=== PATIENT | male | born 1980 | race African-American/Black ===

== ENCOUNTER 2018-03-02 17:26 | Emergency (ER) | payer SELFPAY ==
[2018-03-02 17:37] VITALS: BMI 42.0
--- NOTE | 2018-03-02 17:57 | PDOC ---
History of Present Illness - General Chief Complaint: Blood Pressure Problem Stated Complaint: BLOOD PRESSURE PROBLEM Time Seen by Provider: 03/02/18 17:53 - History of Present Illness Initial Comments: 03/02/18 17:56 38 yo M with h/o uncontrolled HTN, who p/w headache. Patient reports unremitting , worsening, pressure, bi frontal headache beginning at 0500 AM this morning, worsening in severity. Pain not relieved with OTC Motrin. Pain typical of prior BATES's in past, but worse in severity. Patient states worst headache of his life. Associated with nausea without vomiting. Endorsed period of lightheadedness, with absent LOC, head trauma, in waiting room. Denies phonophobic, photophobia, neck stiffness, rhinorrhea, lacrimation, scintillating scotomas, visual change, tinnitus, hearing loss. Patient ran out of HCTZ x 3 months. Switching insurance providers. No PMD. Patient denies palpitations, orthopnea, PND, leg pain/swelling, cough, wheezing , F/C, CP, SOB, urinary complaints, abdominal pain, diarrhea, constipation, weakness, sensory changes. PMHx: as noted above ROS: as noted SHx: Denies Etoh, tobacco, IVDA Allergies:NKDA Past History - Past Medical History Allergies/Adverse Reactions: Allergies Allergy/AdvReac Type Severity Reaction Status Date / Time shellfish derived Allergy Severe Swelling Verified 03/02/18 19:12 Home Medications: Ambulatory Orders No Home Medications 0 dose .ROUTE UTDICT 04/18/13 Hydrochlorothiazide 12.5 mg PO DAILY #30 tablet MDD 1 tab 03/02/18 Valsartan [Diovan] 40 mg PO DAILY #30 tablet 03/02/18 Anemia: No Asthma: No Cancer: No COPD: No HTN: Yes (NOT TREATED) - Surgical History Abdominal Surgery: No Appendectomy: No Cardiac Surgery: No - Family Disease History Family Disease History: Other: Grandparents (hypertension) - Suicide/Smoking/Psychosocial Hx Smoking Status: No Smoking History: Never smoked Number of Cigarettes Smoked Daily: 0 Hx Alcohol Use: No Drug/Substance Use Hx: No Substance Use Type: None Review of Systems - Review of Systems Comments:: 03/02/18 17:56 GENERAL/CONSTITUTIONAL: No fever or chills. No weakness. HEAD, EYES, EARS, NOSE AND THROAT: No change in vision. No ear pain or discharge. No sore throat. CARDIOVASCULAR: No chest pain or shortness of breath RESPIRATORY: No cough, wheezing, or hemoptysis. GASTROINTESTINAL: + nausea. No vomiting, diarrhea or constipation. GENITOURINARY: No dysuria, frequency, or change in urination. MUSCULOSKELETAL: No joint or muscle swelling or pain. No neck or back pain. SKIN: No rash NEUROLOGIC:+ headache. No vertigo, loss of consciousness, or change in strength/ sensation. ENDOCRINE: No increased thirst. No abnormal weight change HEMATOLOGIC/LYMPHATIC: No anemia, easy bleeding, or history of blood clots. ALLERGIC/IMMUNOLOGIC: No hives or skin allergy. *Physical Exam - Vital Signs Last Vital Signs Temp Pulse Resp BP Pulse Ox 97.5 F L 89 18 210/130 H 100 03/02/18 17:32 18 17:32 1218 17:32 18 17:32 03/02/18 17:32 - Physical Exam Comments: 03/02/18 17:56 GENERAL: Awake, alert, and fully oriented, in no acute distress HEAD: No signs of trauma, normocephalic, atraumatic EYES: PERRLA, EOMI, sclera anicteric, conjunctiva clear ENT: Auricles normal inspection, hearing grossly normal, nares patent, oropharynx clear without exudates. Moist mucosa NECK: Normal ROM, supple, no lymphadenopathy, JVD, or masses LUNGS: No distress, speaks full sentences, clear to auscultation bilaterally HEART: Regular rate and rhythm, normal S1 and S2, no murmurs, rubs or gallops, peripheral pulses normal and equal bilaterally. EXTREMITIES : Normal inspection, Normal range of motion, no edema. No clubbing or cyanosis. NEUROLOGICAL: Cranial nerves II through XII grossly intact. Normal speech, normal gait, no focal sensorimotor deficits SKIN: Warm, Dry, normal turgor, no rashes or lesions noted Moderate Sedation - Procedure Monitoring Vital Signs: Procedure Monitoring Vital Signs Temperature 97.5 F L 03/02/18 17:32 Pulse Rate 89 03/02/18 17:32 Respiratory Rate 18 03/02/18 17:32 Blood Pressure 210/130 H 03/02/18 17:32 O2 Sat by Pulse Oximetry (%) 100 03/02/18 17:32 ED Treatment Course - LABORATORY CBC & Chemistry Diagram: 12/02/18 18:37 03/02/18 18:37 Medical Decision Making - Medical Decision Making 03/02/18 18:35 38 yo M with h/o uncontrolled HTN, morbid obesity, who p/w headache. BP 210/130, vitals otherwise wnl. R/o SAH. No obvious evidence of end organ dysfunction on physical exam. Absent neuro deficits, edema, cough, chest pain, hematuria. Absent nuchal rigidity or neck stiffness, non toxic, AF. Low suspicion meningitis. No evidence of head trauma. ED Course: CBC,CMP CTH Reglan, NS, HCTZ 25 03/02/18 18:54 EKG: NSR with Q wave in lead III. No acute TAYLOR, STD. Prolonged QTc 495. EKG, similar to prior EKG 03/2012. 03/02/18 22:43 CBC,CMP: Unremarkable UA: Neg BP: 167/112( baseline) CTH: No acute pathology HCTZ 12.5 sent to pharmacy Pt. BATES resolved. Stable for d/c with return precautions. Advised to f/u in Med clinic. *DC/Admit/Observation/Transfer Diagnosis at time of Disposition: Headache, Essential hypertension - Discharge Dispostion Disposition: HOME Condition at time of disposition: Stable Decision to Admit order: No - Prescriptions Prescriptions: Hydrochlorothiazide 12.5 mg PO DAILY #30 tablet MDD 1 tab Valsartan [Diovan] 40 mg PO DAILY #30 tablet - Referrals Referrals: James Carcamo MD [Staff Physician] - - Patient Instructions Printed Discharge Instructions: DI for High Blood Pressure Additional Instructions: Please return to the emergency department with any new or worsening symptoms or concerns. Please follow up with your primary care physician within 72 hours. - Post Discharge Activity - Attestations Physician Attestion: 03/02/18 17:56 I attest to the information provided in this note.
[2018-03-02] MEDS ORDERED: KETOROLAC TROMETHAMINE 30 MG/1 ML VIAL ONE (18:26)
[2018-03-02] MEDS ORDERED: METOCLOPRAMIDE HCL INJECTION 10 MG/2 ML VIAL ONE (18:26)
[2018-03-02] MEDS ORDERED: METOCLOPRAMIDE HCL INJECTION 10 MG/2 ML VIAL IVPUSH ONE (18:27)
[2018-03-02] MEDS ORDERED: SODIUM CHLORIDE 1,000 ML IV STA (18:27)
[2018-03-02] MEDS ORDERED: HYDROCHLOROTHIAZIDE 25 MG TABLET (FP) PO ONE (18:40)
--- NOTE | 2018-03-02 18:42 | PDOC ---
Attending Attestation - HPI HPI: 03/02/18 18:44 The patient is a 38 year old male, with a significant past medical history of uncontrolled hypertension, who presents to the emergency department with progressive bifrontal headache since 5AM this morning despite taking Aleve throughout the day. He states his headaches are usually alleviated with Aleve, however, took 3 Aleve this morning and an additional 2 later in the day without any relief of his headache. He states his headache is similar to a headache he had one year ago which was associated with high blood pressure. He states he has been off of his BP medication for about 3 months because he switched jobs and lost insurance. The patient denies chest pain, shortness of breath, headache and dizziness. The patient denies fever, chills, nausea, vomit, diarrhea and constipation. The patient denies dysuria, frequency, urgency and hematuria. Allergies: NKDA Social Hx: Denies ETOH or tobacco use Family Hx: Hypertension and Renal Failure) - Medical Decision Making 03/02/18 18:44 Documentation prepared by Perla Mart, acting as medical practice administrator for Fartun Long MD <Perla Mart - Last Filed: 03/02/18 18:44> - ED Attending Attestation I have performed the following: I have examined & evaluated the patient, The case was reviewed & discussed with the resident, I agree w/resident's findings & plan, Exceptions are as noted - Physicial Exam PE: 03/02/18 18:40 Awake alert no acute distress lungs are clear bilaterally heart is regular without any murmurs rubs or gallops abdomen is soft nontender obese exam is are warm and well-perfused neurologically the patient is alert and oriented 3 moving all 4 extremities speech is clear skin is warm and dry - Medical Decision Making 03/02/18 18:42 38-year-old obese male history of hypertension off his meds for 3 months here complaining of a headache and elevated blood pressure. Similar to prior headaches when pressure was elevated. Differential includes hypertensive emergency, anemia, renal failure, and organ damage, ICH considered CT head basic labs EKG patient will be reinstituted on his previous hydrochlorothiazide given prescription for the medications will reassess will be given Tylenol for his pain <Fartun Long - Last Filed: 03/02/18 18:54> Heart Score/ECG Review #1 General ECG Interpretation: Sinus Rhythm, Normal Rate, Normal Intervals ( physical Q w), No acute ischemic changes Compared to previous ECG there are: No significant change (comparison 3 over03/15 with that. As visible a V/Q R so bit nonbloody an) <Fartun Long - Last Filed: 03/02/18 18:54>
[2018-03-02 18:44] LABS: BASO % 0.5 % (0-2.0); EOS % 0.9 % (0-4.5); HEMATOCRIT 41.8 % (35.4-49); HEMOGLOBIN 14.6 GM/dL (11.7-16.9); MCH 30.5 pg (25.7-33.7); MCHC 34.9 g/dl (32.0-35.9); MEAN CELL VOLUME 87.2 fl (80-96); MEAN PLT VOLUME 9.3 fl (7.5-11.1); MONO % 6.5 % (3.8-10.2); NEUT % 74.1 % (42.8-82.8); PLATELET COUNT 254 K/MM3 (134-434); RBC 4.79 M/mm3 (4.00-5.60); RDW 14.3 % (11.9-15.9); WHITE BLOOD COUNT 8.9 K/mm3 (4.0-10.0)
[2018-03-02 18:45] LABS: URINE APPEARANCE CLEAR; URINE BILIRUBIN NEGATIVE (<2.0 mg/dL); URINE COLOR YELLOW; URINE GLUCOSE (UA) NEGATIVE (NEGATIVE); URINE KETONE NEGATIVE (NEGATIVE); URINE LEUK ESTERASE NEGATIVE (NEGATIVE); URINE NITRITE NEGATIVE (NEGATIVE); URINE PROTEIN NEGATIVE (NEGATIVE); URINE UROBILINOGEN NEGATIVE mg/dL (0.2-1.0)
[2018-03-02] MEDS ORDERED: HYDROCHLOROTHIAZIDE 25 MG TABLET (FP) ONE (18:51)
[2018-03-02 19:09] LABS: ALBUMIN 4.6 g/dl (3.4-5.0); ALK PHOS 85 U/L (45-117); ANION GAP 9 MMOL/L (8-16); BILIRUBIN,TOTAL 0.4 mg/dL (0.2-1); BLOOD UREA NITROGEN 13 mg/dL (7-18); CALCIUM 9.3 mg/dL (8.5-10.1); CHLORIDE 100 mmol/L (98-107); CO2 28 mmol/L (21-32); GLUCOSE,RANDOM 106 mg/dL (74-106); POTASSIUM 4.1 mmol/L (3.5-5.1); SGOT/AST 22 U/L (15-37); SGPT/ALT 38 U/L (13-61); SODIUM 137 mmol/L (136-145); TOT PROT 8.7 g/dl (6.4-8.2)
[2018-03-02 21:21] VITALS: BP 167/112; PULSE 83; TEMP 98.8
[2018-03-02] MEDS ORDERED: VALSARTAN 80 MG TABLET (UD) PO ONE (22:27)
[2018-03-02] MEDS ORDERED: ACETAMINOPHEN 500 MG TABLET (FP) PO ONE (22:28)
[2018-03-02] MEDS ORDERED: ACETAMINOPHEN INJECTION 100 ML IVPB ONE (22:30)
[2018-03-02] MEDS ORDERED: VALSARTAN 80 MG TABLET (UD) ONE (22:30)
[2018-03-02] MEDS ORDERED: ACETAMINOPHEN 325 MG TABLET (FP) ONE (22:33)
--- NOTE | 2018-03-02 23:00 | PDOC ---
*Physical Exam - Vital Signs Last Vital Signs Temp Pulse Resp BP Pulse Ox 98.8 F 83 16 167/112 H 100 03/02/18 21:15 03/02/18 21:15 03/02/18 21:15 03/02/18 21:15 03/02/18 21:15 ED Treatment Course - LABORATORY CBC & Chemistry Diagram: 03/02/18 18:37 03/02/18 18:37 - ADDITIONAL ORDERS Additional order review: Laboratory Results 03/02/18 03/02/18 18:37 18:37 Sodium 137 Potassium 4.1 Chloride 100 Carbon Dioxide 28 Anion Gap 9 BUN 13 Creatinine 1.0 Creat Clearance w eGFR > 60 Random Glucose 106 Calcium 9.3 Total Bilirubin 0.4 AST 22 ALT 38 Alkaline Phosphatase 85 Total Protein 8.7 H Albumin 4.6 Urine Color Yellow Urine Appearance Clear Urine pH 6.0 Ur Specific [place] 1.021 Urine Protein Negative Urine Glucose (UA) Negative Urine Ketones Negative Urine Blood Negative Urine Nitrite Negative Urine Bilirubin Negative Urine Urobilinogen Negative Ur Leukocyte Esterase Negative 03/02/18 18:37 RBC 4.79 MCV 87.2 MCHC 34.9 RDW 14.3 MPV 9.3 Neutrophils % 74.1 D Lymphocytes % 18.0 D Monocytes % 6.5 Eosinophils % 0.9 Basophils % 0.5 - Medications Given in the ED: ED Medications Discontinued Medications Generic Name Dose Route Start Last Admin Trade Name Onofreq PRN Reason Stop Dose Admin Acetaminophen 1,000 mg 03/02/18 22:28 03/02/18 22:40 Tylenol - PO 03/02/18 22:29 Not Given ONCE ONE Hydrochlorothiazide 25 mg 03/02/18 18:40 03/02/18 18:50 Hctz - PO 03/02/18 18:41 25 mg ONCE ONE Administration Sodium Chloride 1,000 mls @ 1,000 mls/hr 03/02/18 18:27 03/02/18 18:38 Normal Saline - IV 03/02/18 19:26 1,000 mls/hr ASDIR STA Administration Metoclopramide HCl 10 mg 03/02/18 18:27 03/02/18 18:38 Reglan Injection - IVPUSH 03/02/18 18:28 10 mg ONCE ONE Administration Valsartan 80 mg 03/02/18 22:27 03/02/18 22:38 Diovan - PO 03/02/18 22:28 80 mg ONCE ONE Administration Medical Decision Making - Medical Decision Making 03/02/18 22:58 03/02/18 22:58 Patient Name: MIKE JORGE THIS IS A PRELIMINARY REPORT FROM [facility] EXAM: CT head without contrast IMAGES: 150 DATE OF EXAM: 2018-03-02 21:37:13 REASON FOR EXAM: Headaches COMPARISON: None. FINDINGS: The brain parenchyma demonstrates normal attenuation without focal mass or mass effect. The ventricles are not enlarged. No acute intracranial hemorrhage or acute infarction. The visualized aspect of the paranasal sinuses and mastoid air cells are unremarkable. Moderate debris in external auditory canals. No acute fracture. One or more of the following dose reduction techniques were used: automated exposure control, adjustment of the mA and/or kV according to patient size, use of iterative reconstructive technique. THIS DOCUMENT HAS BEEN ELECTRONICALLY SIGNED 03/02/18 22:58 I received pt on signout. He has uncontrolled BP. Today we will control with diovan. Pt's HCTZ has not been controlling it and on top of that he ran out of HCTZ. Diovan given in ER and 30 day rx sent to pharmacy. Pt will follow with his doctors. He needs to lose weight. Labs and exam and CT scan normal. *DC/Admit/Observation/Transfer Diagnosis at time of Disposition: Headache, Essential hypertension - Discharge Dispostion Disposition: HOME Condition at time of disposition: Stable - Prescriptions Prescriptions: Hydrochlorothiazide 12.5 mg PO DAILY #30 tablet MDD 1 tab Valsartan [Diovan] 40 mg PO DAILY #30 tablet - Referrals Referrals: James Carcamo MD [Staff Physician] - - Patient Instructions Printed Discharge Instructions: DI for High Blood Pressure Additional Instructions: Please return to the emergency department with any new or worsening symptoms or concerns. Please follow up with your primary care physician within 72 hours. - Post Discharge Activity
[2018-03-02] MEDS ORDERED: ACETAMINOPHEN 325 MG TABLET (FP) PO ONE (23:11)
--- NOTE | 2018-03-03 11:15 | EKG ---
Test Reason : Blood Pressure : / mmHG Vent. Rate : 098 BPM Atrial Rate : 098 BPM P-R Int : 178 ms QRS Dur : 110 ms QT Int : 388 ms P-R-T Axes : 045 033 060 degrees QTc Int : 495 ms NORMAL SINUS RHYTHM PROLONGED QT ABNORMAL ECG WHEN COMPARED WITH ECG OF 15-MAR-2012 15:20, NO SIGNIFICANT CHANGE WAS FOUND Confirmed by ANNALISA ORDONEZ MD ([id number]) on 03/03/2018 11:14:58 AM Referred By: Confirmed By:ANNALISA ORDONEZ MD
== END 2018-03-02 23:14 | disposition home or self-care (01) ==
LOC: JER 17:26
PROC: 3E033GC Introduction of Other Therapeutic Substance into Peripheral Vein, Percutaneous Approach (ICD-10-PCS; principal; 2018-03-02)
PROC: 3E0337Z Introduction of Electrolytic and Water Balance Substance into Peripheral Vein, Percutaneous Approach (ICD-10-PCS; 2018-03-02)
DX: I10 Essential (primary) hypertension (principal); E66.01 Morbid (severe) obesity due to excess calories
CPT/HCPCS: 36415; 70450-TC; 80053; 81003; 85025; 93005; 93010; 99283-25; J7030

== ENCOUNTER 2018-05-14 09:45 | Observation (INO) | payer OTHER ==
--- NOTE | 2018-05-14 10:37 | PDOC ---
History of Present Illness - History of Present Illness Initial Comments: 05/14/18 12:01 The patient is a 38 year old male, with a significant past medical history of uncontrolled hypertension, who presents to the emergency department with sudden onset of headache at 4AM which did not resolve after taking Aleve. The patient states he felt his blood pressure was high so he also took his hydrochlorothiazide, however, denies improvement of his symptoms. He states he has not been compliant with his HTN medications, but states he has an appointment with his PCP to discuss increasing his BP medications. Secondarily, he reports a couple episodes of loose stools this morning. Upon arrival, he developed nausea, mild upper abdominal pain, and began vomiting green emesis during exam. The patient denies chest pain, shortness of breath, and dizziness. The patient denies fever, chills, and constipation. The patient denies dysuria, frequency, urgency and hematuria. Allergies: NKDA Social Hx: Denies ETOH or tobacco use Family Hx: Hypertension and Renal Failure PCP: Dr. Espinoza ([facility]) <Perla Mart - Last Filed: 05/14/18 14:04> - General History Source: Patient Exam Limitations: No Limitations <Divya Garza - Last Filed: 05/15/18 20:55> - General Chief Complaint: Blood Pressure Problem Stated Complaint: BLOOD PRESSURE PROBLEM Time Seen by Provider: 05/14/18 10:37 Past History <Perla Mart - Last Filed: 05/14/18 14:04> - Past Medical History Anemia: No Asthma: No Cancer: No COPD: No HTN: Yes (NOT TREATED) - Surgical History Abdominal Surgery: No Appendectomy: No Cardiac Surgery: No - Family Disease History Family Disease History: Other: Grandparents (hypertension) - Suicide/Smoking/Psychosocial Hx Smoking Status: No Smoking History: Never smoked Number of Cigarettes Smoked Daily: 0 Information on smoking cessation initiated: No Hx Alcohol Use: No Drug/Substance Use Hx: No Substance Use Type: None <Divya Garza - Last Filed: 05/15/18 20:55> - Past Medical History Allergies/Adverse Reactions: Allergies Allergy/AdvReac Type Severity Reaction Status Date / Time shellfish derived Allergy Severe Swelling Verified 05/14/18 10:00 Home Medications: Ambulatory Orders Hydrochlorothiazide 12.5 mg PO DAILY #30 tablet MDD 1 tab 03/02/18 Review of Systems - Review of Systems Able to Perform ROS?: Yes Comments:: 05/14/18 12:01 CONSTITUTIONAL: Absent: fever, no chills, no fatigue EYES: Absent: visual changes ENT: Absent: ear pain, no sore throat CARDIOVASCULAR: (+) Elevated BP. Absent: chest pain, no palpitations RESPIRATORY: Absent: cough, no SOB GASTROINTESTINAL: (+) upper abdominal pain, nausea, vomiting, diarrhea. No constipation. GENITOURINARY: Absent: dysuria, no frequency, no hematuria MUSCULOSKELETAL: Absent: back pain, no arthralgia, no myalgia SKIN: Absent: rash NEURO: (+) headache <Perla Mart - Last Filed: 05/14/18 14:04> *Physical Exam - Vital Signs Last Vital Signs Temp Pulse Resp BP Pulse Ox 98.2 F 82 20 185/110 H 99 05/14/18 10:33 05/14/18 10:33 05/14/18 10:33 05/14/18 10:33 05/14/18 10:33 - Physical Exam Comments: 05/14/18 12:02 GENERAL: (+) vomiting on exam. The patient is in no acute distress. HEAD: Normal with no signs of trauma. EYES: PERRLA, EOMI, sclera anicteric, conjunctiva clear. ENT: Ears normal, nares patent, oropharynx clear without exudates. Moist mucous membranes. NECK: Normal range of motion, supple without lymphadenopathy, JVD, or masses. LUNGS: Breath sounds equal, clear to auscultation bilaterally. No wheezes, and no crackles. HEART:Regular rate and rhythm, normal S1 and S2 without murmur, rub or gallop. ABDOMEN: Soft, nontender, normoactive bowel sounds. No guarding, no rebound. No masses palpable. EXTREMITIES: Normal range of motion, no edema. No clubbing or cyanosis. No erythema, or tenderness. NEUROLOGICAL: Cranial nerves II through XII grossly intact. Normal speech. No focal neurological deficits. MUSCULOSKELETAL: Back non-tender to palpation, no CVA tenderness SKIN: Warm, Dry, normal turgor, no rashes or lesions noted. <Perla Mart - Last Filed: 05/14/18 14:04> - Vital Signs Last Vital Signs Temp Pulse Resp BP Pulse Ox 98.2 F 87 19 169/104 H 98 05/14/18 09:58 05/14/18 09:58 05/14/18 09:58 05/14/18 09:58 05/14/18 09:58 <Divya Garza - Last Filed: 05/15/18 20:55> Moderate Sedation - Procedure Monitoring Vital Signs: Procedure Monitoring Vital Signs Temperature 98.2 F 05/14/18 10:33 Pulse Rate 82 05/14/18 10:33 Respiratory Rate 20 05/14/18 10:33 Blood Pressure 185/110 H 05/14/18 10:33 O2 Sat by Pulse Oximetry (%) 99 05/14/18 10:33 <Perla Mart - Last Filed: 05/14/18 14:04> - Procedure Monitoring Vital Signs: Procedure Monitoring Vital Signs Temperature 98.2 F 05/14/18 09:58 Pulse Rate 87 05/14/18 09:58 Respiratory Rate 19 05/14/18 09:58 Blood Pressure 169/104 H 05/14/18 09:58 O2 Sat by Pulse Oximetry (%) 98 05/14/18 09:58 <Divya Garza - Last Filed: 05/15/18 20:55> ED Treatment Course - LABORATORY CBC & Chemistry Diagram: 05/14/18 10:58 05/14/18 10:37 - ADDITIONAL ORDERS Additional order review: Laboratory Results 05/14/18 10:37 Sodium 136 Potassium 4.3 Chloride 100 Carbon Dioxide 28 Anion Gap 8 BUN 10 Creatinine 0.9 Creat Clearance w eGFR > 60 Random Glucose 129 H Calcium 9.2 Total Bilirubin 0.5 AST 23 ALT 37 Alkaline Phosphatase 89 Creatine Kinase 211 Troponin I 0.27 H Total Protein 8.9 H Albumin 4.4 - Medications Given in the ED: ED Medications Discontinued Medications Generic Name Dose Route Start Last Admin Trade Name Freq PRN Reason Stop Dose Admin Acetaminophen 1,000 mg 05/14/18 11:00 05/14/18 11:27 Ofirmev Injection - IVPB 05/14/18 11:01 1,000 mg ONCE ONE Administration Diphenhydramine HCl 25 mg 05/14/18 11:00 05/14/18 11:26 Benadryl Injection - IVPB 05/14/18 11:01 25 mg ONCE ONE Administration Metoclopramide HCl 10 mg 05/14/18 11:00 05/14/18 11:29 Reglan Injection - IVPUSH 05/14/18 11:01 10 mg ONCE ONE Administration <Perla Mart - Last Filed: 05/14/18 14:04> - LABORATORY CBC & Chemistry Diagram: 05/15/18 05:15 05/14/18 10:37 <Divya Garza - Last Filed: 05/15/18 20:55> Medical Decision Making - Medical Decision Making 05/14/18 13:44 Dr. Gastelum was paged at the office at this time requesting a call back. 05/14/18 14:04 Dr Gastelum was called and the patient's case was discussed. <Perla Mart - Last Filed: 05/14/18 14:04> - Medical Decision Making 05/14/18 11:28 Mr Piper is a 38 yo M with a history of HTN, non compliant with anti hypertensive medication who presents to the ER with a complaint of headache and elevated blood pressure The patient states that he has not been taking his blood pressure medications consistently because he lost his insurance He was seen in March for similar complaints HE was given HCTZ which he has been taking intermittently Pt awoke this morning at 4am with elevated blood pressure He noted a headache on the right side of his head, described as "being punched in the head" No fevers or chills No neck pain Pt reports nausea, photophobia Symptoms are similar to his presentation in March He took Aleeve but this has not helped his symptoms EKG:NSR Rate of 85 bpm, axis nml, no st elevation or depression, t waves upright EXCEPT for aVL and lead I DD: ucontrolled blood pressure, tension headache, migraine headache This is NOT hypertensive encephalopathy Will give: Tylenol, Reglan CT head IV Labetolol Re assess 05/14/18 12:46 Laboratory Tests 05/14/18 05/14/18 10:37 10:58 WBC 6.9 Hgb 15.1 Hct 44.1 Plt Count 234 Sodium 136 Potassium 4.3 Chloride 100 Carbon Dioxide 28 BUN 10 Creatinine 0.9 Random Glucose 129 H Creatine Kinase 211 Creatine Kinase Index 0.9 CK-MB (CK-2) 1.9 Troponin I 0.27 H 05/14/18 13:29 Trop intermediate range Will place on observation <Divya Garza - Last Filed: 05/15/18 20:55> *DC/Admit/Observation/Transfer - Attestations Scribe Attestion: 05/14/18 12:03 Documentation prepared by Perla Mart, acting as medical cash poster for Divya Garza MD. <Perla Mart - Last Filed: 05/14/18 14:04> - Discharge Dispostion Decision to Admit order: Yes <Divya Garza - Last Filed: 05/15/18 20:55> Diagnosis at time of Disposition: Elevated troponin - Discharge Dispostion Condition at time of disposition: Stable
[2018-05-14] MEDS ORDERED: METOCLOPRAMIDE HCL INJECTION 10 MG/2 ML VIAL IVPUSH ONE (11:00)
[2018-05-14] MEDS ORDERED: ACETAMINOPHEN 1000 MG/100 ML VIAL (NON FORMULARY) IVPB ONE (11:00)
[2018-05-14] MEDS ORDERED: LABETALOL HCL 5 MG/1 ML (100MG/20 ML VIAL) IVPUSH ONE (11:01)
[2018-05-14] MEDS ORDERED: ACETAMINOPHEN INJECTION 100 ML IVPB ONE (11:16)
[2018-05-14] MEDS ORDERED: METOCLOPRAMIDE HCL INJECTION 10 MG/2 ML VIAL ONE (11:16)
[2018-05-14 11:17] LABS: BASO % 0.8 % (0-2.0); EOS % 0.5 % (0-4.5); HEMATOCRIT 44.1 % (35.4-49); HEMOGLOBIN 15.1 GM/dL (11.7-16.9); LYMPH % 17.2 % (8-40); MCH 30.5 pg (25.7-33.7); MCHC 34.1 g/dl (32.0-35.9); MEAN CELL VOLUME 89.2 fl (80-96); MEAN PLT VOLUME 9.2 fl (7.5-11.1); MONO % 5.7 % (3.8-10.2); NEUT % 75.8 % (42.8-82.8); PLATELET COUNT 234 K/MM3 (134-434); RBC 4.94 M/mm3 (4.00-5.60); RDW 14.3 % (11.9-15.9); WHITE BLOOD COUNT 6.9 K/mm3 (4.0-10.0)
[2018-05-14 11:50] LABS: ALBUMIN 4.4 g/dl (3.4-5.0); ALK PHOS 89 U/L (45-117); ANION GAP 8 MMOL/L (8-16); BILIRUBIN,TOTAL 0.5 mg/dL (0.2-1); BLOOD UREA NITROGEN 10 mg/dL (7-18); CALCIUM 9.2 mg/dL (8.5-10.1); CHLORIDE 100 mmol/L (98-107); CO2 28 mmol/L (21-32); CREATININE 0.9 mg/dL (0.55-1.3); GLUCOSE,RANDOM 129 mg/dL (74-106); POTASSIUM 4.3 mmol/L (3.5-5.1); SGOT/AST 23 U/L (15-37); SGPT/ALT 37 U/L (13-61); SODIUM 136 mmol/L (136-145); TOT PROT 8.9 g/dl (6.4-8.2)
[2018-05-14] MEDS ORDERED: ACETAMINOPHEN 325 MG TABLET (FP) PO PRN (15:12)
--- NOTE | 2018-05-14 16:04 | EKG ---
Test Reason : Blood Pressure : / mmHG Vent. Rate : 085 BPM Atrial Rate : 085 BPM P-R Int : 172 ms QRS Dur : 098 ms QT Int : 406 ms P-R-T Axes : 048 -15 074 degrees QTc Int : 483 ms POOR DATA QUALITY, INTERPRETATION MAY BE ADVERSELY AFFECTED NORMAL SINUS RHYTHM PROLONGED QT ABNORMAL ECG WHEN COMPARED WITH ECG OF 02-MAR-2018 18:11, NO SIGNIFICANT CHANGE WAS FOUND Confirmed by SHANIQUE POST MD ([id number]) on 05/14/2018 4:03:34 PM Referred By: Confirmed By:SHANIQUE POST MD
--- NOTE | 2018-05-14 16:45 | CON.CARD ---
Consult Consult Specialty:: Cardiology Reason for Consultation:: HTN emergency - History of Present Illness History of Present Illness: 38 yo M with HTN not on medications due to insurance issues, severe obesity, admitted with several hours of BATES and nausea with diarrhea x3. Found to have BP 185/110. Vomited x1. Improved with IV labetalol. No chest pain, no dyspnea. Currently comfortable BATES is 3/10 down form 10/10. - History Source History Provided By: Patient Limitations to Obtaining History: No Limitations - Past Medical History Cardio/Vascular: Yes: HTN - Alcohol/Substance Use Hx Alcohol Use: No - Smoking History Smoking history: Never smoked Aproximately how many cigarettes per day: 0 Home Medications - Allergies Allergies/Adverse Reactions: Allergies Allergy/AdvReac Type Severity Reaction Status Date / Time shellfish derived Allergy Severe Swelling Verified 05/14/18 10:00 - Home Medications Home Medications: Ambulatory Orders Hydrochlorothiazide 12.5 mg PO DAILY #30 tablet MDD 1 tab 03/02/18 Review of Systems - Review of Systems Constitutional: reports: No Symptoms Eyes: reports: No Symptoms. denies: Blurred Vision HENT: reports: No Symptoms Neck: reports: No Symptoms Cardiovascular: denies: Chest Pain, Edema, Palpitations, Shortness of Breath Respiratory: denies: Cough, Exercise Intolerance, SOB, SOB on Exertion Gastrointestinal: reports: Abdominal Pain, Diarrhea, Vomiting Vital Signs: Vital Signs Temperature 98.9 F 05/14/18 14:43 Pulse Rate 93 H 05/14/18 14:43 Respiratory Rate 18 05/14/18 14:43 Blood Pressure 165/106 H 05/14/18 14:43 O2 Sat by Pulse Oximetry (%) 95 05/14/18 14:43 Constitutional: Yes: Well Nourished, No Distress, Calm Eyes: Yes: Conjunctiva Clear, EOM Intact HENT: Yes: Atraumatic, Normocephalic Neck: Yes: Supple, Trachea Midline Respiratory: Yes: Regular, CTA Bilaterally Gastrointestinal: Yes: Normal Bowel Sounds, Soft Cardiovascular: Yes: Regular Rate and Rhythm. No: Pulse Irregular, Gallop, Rub JVD: No Carotid Bruit: No PMI: Non-Displaced Heart Sounds: Yes: S1, S2 Murmur: No: Systolic Murmur, Diastolic Murmur Edema: No Peripheral Pulses WNL: Yes - Other Data Labs, Other Data: CBC, BMP 05/14/18 10:58 05/14/18 10:37 Troponin, BNP 05/14/18 10:37 Troponin I 0.27 H Troponin, BNP 05/14/18 10:37 Troponin I 0.27 H NSR nl Higgins and interval no ST T changes. Imaging - Results Cat Scan: Report Reviewed EKG: Image Reviewed Problem List - Problems (1) Elevated troponin Code(s): R74.8 - ABNORMAL LEVELS OF OTHER SERUM ENZYMES (2) Essential hypertension Code(s): I10 - ESSENTIAL (PRIMARY) HYPERTENSION Assessment/Plan 38 yo M with HTN not on medications due to insurance issues, severe obesity, admitted with several hours of BATES and nausea with diarrhea x3. Found to have BP 185/110. Vomited x1. Improved with IV labetalol. No chest pain, no dyspnea. Currently comfortable BATES is 3/10 down form 01/08. 1. Hypertensive urgency: COntinue to use IV labetalol, Nicardipine or hydralazine with goal of keeping BP <160/110. Would not lower BP too rapidly ( lower to about 150/90) in the initial 24 hours Add HCTZ 25mg qd Add Amlodipine 5mg qd. Check TFT Echocardiogram Would eventually evaluate for sleep apnea. 2. Elevated TP. Due to HTN, No ischemic symptoms Monitor on telem. Continue to [facility] Echo
[2018-05-14] MEDS ORDERED: ACETAMINOPHEN 325 MG TABLET (FP) ONE (18:46)
[2018-05-14] MEDS ORDERED: amLODIPine BESYLATE 10 MG TABLET (FP) PO ONE (18:54)
[2018-05-14] MEDS ORDERED: amLODIPine BESYLATE 5 MG TABLET (FP) ONE (19:17)
[2018-05-14] MEDS ORDERED: LABETALOL HCL 100 MG TABLET (FP) ONE (22:37)
[2018-05-14] MEDS: LABETALOL HCL 100 MG TABLET (FP) PO SCH (22:40)
[2018-05-15 02:14] VITALS: BMI 29.0
[2018-05-15 06:08] LABS: MAGNESIUM 2.4 mg/dL (1.8-2.4); PHOSPHOROUS 3.8 mg/dL (2.5-4.9)
[2018-05-15 06:53] LABS: HEMATOCRIT 40.9 % (35.4-49); MCH 30.4 pg (25.7-33.7); MCHC 34.4 g/dl (32.0-35.9); MEAN CELL VOLUME 88.6 fl (80-96); MEAN PLT VOLUME 9.5 fl (7.5-11.1); PLATELET COUNT 215 K/MM3 (134-434); RBC 4.61 M/mm3 (4.00-5.60); RDW 14.5 % (11.9-15.9); WHITE BLOOD COUNT 7.2 K/mm3 (4.0-10.0)
[2018-05-15] MEDS: LABETALOL HCL 100 MG TABLET (FP) PO SCH ×3 (08:23→21:51)
--- NOTE | 2018-05-15 09:13 | HP ---
Admitting History and Physical - Primary Care Physician PCP: Rafael Gastelum - Admission Chief Complaint: HEADACHE WITH CHEST PAIN HYPERTENSIVE EMERGENCY History of Present Illness: PATIENT FROM MY [address] [place] [address] HERE WITH HEADACHE AND HYPERTENSION .The patient is a 38 year old male, with a significant past medical history of uncontrolled hypertension, who presents to the emergency department with sudden onset of headache at 4AM which did not resolve after taking Aleve. The patient states he felt his blood pressure was high so he also took his hydrochlorothiazide, however, denies improvement of his symptoms. He states he has not been compliant with his HTN medications, but states he has an appointment with his PCP to discuss increasing his BP medications. Secondarily, he reports a couple episodes of loose stools this morning. Upon arrival, he developed nausea, mild upper abdominal pain, and began vomiting green emesis during exam. History Source: Patient, Medical Record - Past Medical History Cardiovascular: Yes: HTN - Smoking History Smoking history: Never smoked Have you smoked in the past 12 months: No Aproximately how many cigarettes per day: 0 - Alcohol/Substance Use Hx Alcohol Use: No Home Medications - Allergies Allergies/Adverse Reactions: Allergies Allergy/AdvReac Type Severity Reaction Status Date / Time shellfish derived Allergy Severe Swelling Verified 05/14/18 10:00 - Home Medications Home Medications: Ambulatory Orders Hydrochlorothiazide 12.5 mg PO DAILY #30 tablet MDD 1 tab 03/02/18 Review of Systems - Review of Systems Constitutional: reports: Other Eyes: reports: Double Vision HENT: reports: Other (HEADACHE) Neck: reports: No Symptoms Cardiovascular: reports: Chest Pain Respiratory: reports: No Symptoms Gastrointestinal: reports: No Symptoms Genitourinary: reports: No Symptoms Musculoskeletal: reports: No Symptoms Integumentary: reports: No Symptoms Neurological: reports: Dizziness, Headache Endocrine: reports: No Symptoms Hematology/Lymphatic: reports: No Symptoms Psychiatric: reports: No Symptoms Physical Examination Vital Signs: Vital Signs Temperature 98.1 F 05/15/18 02:09 Pulse Rate 93 H 05/15/18 03:03 Respiratory Rate 18 05/15/18 03:03 Blood Pressure 157/98 05/15/18 03:03 O2 Sat by Pulse Oximetry (%) 97 05/15/18 02:06 Constitutional: Yes: Moderate Distress Eyes: Yes: WNL HENT: Yes: WNL Neck: Yes: WNL Cardiovascular: Yes: Regular Rate and Rhythm Respiratory: Yes: WNL Gastrointestinal: Yes: Abdomen, Obese Renal/: Yes: WNL Musculoskeletal: Yes: WNL Extremities: Yes: WNL Edema: No Peripheral Pulses WNL: Yes Integumentary: Yes: WNL Wound/Incision: Yes: Clean/Dry Neurological: Yes: WNL ...Motor Strength: WNL Psychiatric: Yes: WNL Labs: CBC, BMP 05/15/18 05:15 05/14/18 10:37 Problem List - Problems (1) Elevated troponin Code(s): R74.8 - ABNORMAL LEVELS OF OTHER SERUM ENZYMES (2) Essential hypertension Code(s): I10 - ESSENTIAL (PRIMARY) HYPERTENSION (3) Headache Code(s): R51 - HEADACHE Assessment/Plan CARDIAC WORKUP CT HEAD IF HEADACHES RETURN WEIGHT LOSS AND EXERCISE D/W PATIENT LABS REVIEWED BP CONTROL CARDIO F/U
[2018-05-15] MEDS ORDERED: amLODIPine BESYLATE 5 MG TABLET (FP) PO ONE (11:45)
--- NOTE | 2018-05-15 15:44 | PN ---
Progress Note, Physician Chief Complaint: No complaints Telem NSR History of Present Illness: 38 yo M with HTN not on medications due to insurance issues, severe obesity, admitted with several hours of BATES and nausea with diarrhea x3. Found to have BP 185/110. Vomited x1. Improved with IV labetalol. No chest pain, no dyspnea. - Current Medication List Current Medications: Active Medications Acetaminophen (Tylenol -) 650 mg PO Q6H PRN PRN Reason: PAIN OR FEVER Last Admin: 05/14/18 18:50 Dose: 650 mg Amlodipine Besylate (Norvasc -) 5 mg PO DAILY [facility] Atorvastatin Calcium (Lipitor -) 20 mg PO HS [facility] Labetalol HCl (Normodyne -) 100 mg PO BID [facility] Last Admin: 05/15/18 11:28 Dose: Not Given - Objective Vital Signs: Vital Signs Temperature 98 F 05/15/18 14:00 Pulse Rate 90 05/15/18 14:00 Respiratory Rate 18 05/15/18 14:00 Blood Pressure 162/97 05/15/18 14:00 O2 Sat by Pulse Oximetry (%) 99 05/15/18 12:54 Constitutional: Yes: Well Nourished, No Distress Eyes: Yes: Conjunctiva Clear HENT: Yes: Atraumatic, Normocephalic Neck: Yes: Supple, Trachea Midline Cardiovascular: Yes: Regular Rate and Rhythm. No: JVD Respiratory: Yes: Regular, CTA Bilaterally Gastrointestinal: Yes: Normal Bowel Sounds Edema: No Labs: CBC, BMP 05/15/18 05:15 05/14/18 10:37 Problem List - Problems (1) Elevated troponin Code(s): R74.8 - ABNORMAL LEVELS OF OTHER SERUM ENZYMES (2) Essential hypertension Code(s): I10 - ESSENTIAL (PRIMARY) HYPERTENSION Assessment/Plan 38 yo M with HTN not on medications due to insurance issues, severe obesity, admitted with several hours of BATES and nausea with diarrhea x3. Found to have BP 185/110. Vomited x1. Improved with IV labetalol. No chest pain, no dyspnea. Currently comfortable BATES is 3/10 down form 01/08. 1. Hypertensive urgency: Continue Amlodipine and labetalol. Lower BP slowly Check TFT Echocardiogram Would eventually evaluate for sleep apnea. 2. Elevated TP. Due to HTN, No ischemic symptoms Can stop telemetry. Continue to [facility] Echo Can be discharged if Echocardiogram is benign
[2018-05-15] MEDS ORDERED: ATORVASTATIN CA 20 MG TABLET (FP) PO SCH (22:00)
[2018-05-16] MEDS ORDERED: NAPROXEN 250 MG TABLET (FP) PO ONE (06:15)
[2018-05-16] MEDS: LABETALOL HCL 100 MG TABLET (FP) PO SCH (09:41)
[2018-05-16] MEDS ORDERED: amLODIPine BESYLATE 5 MG TABLET (FP) PO SCH (10:00)
--- NOTE | 2018-05-16 10:33 | ECHO ---
Name: MIKE JORGE Exam:Adult Echocardiogram Study Date: 05/16/2018 07:48 AM Age: 38 yrs Reason For Study: ELEVATED TP Height: 83 in Weight: 285 lb BSA: 2.7 m2 MMode/2D Measurements & Calculations IVSd: 1.5 cm Ao root diam: 3.3 cm LVIDd: 5.0 cm LA dimension: 3.7 cm LVIDs: 3.5 cm LVPWd: 1.2 cm EDV(Teich): 118.1 ml ESV(Teich): 49.8 ml Doppler Measurements & Calculations MV E max dori: 50.4 cm/sec MV A max dori: 60.6 cm/sec MV dec slope: 1102 cm/sec2 MV E/A: 0.83 Procedure The study was technically difficult with many images being suboptimal in quality. Left Ventricle There is mild concentric left ventricular hypertrophy. Left ventricular systolic function is grossly normal. Ejection Fraction = 50-55%. Regional wall motion abnormalities cannot be excluded due to limited visualization. Right Ventricle The right ventricle is not well visualized. Atria Normal left and right atrial size and function. Mitral Valve The mitral valve is grossly normal. There is no mitral valve stenosis. Aortic Valve There is mild aortic sclerosis.;. No hemodynamically significant valvular aortic stenosis. Pulmonic Valve The pulmonic valve is not well seen, but is grossly normal. There is no pulmonic valvular stenosis. Great Vessels The aortic root is not well visualized. Pericardium/Pleura There is no pericardial effusion. Interpretation Summary The study was technically difficult with many images being suboptimal in quality. Regional wall motion abnormalities cannot be excluded due to limited visualization. There is mild concentric left ventricular hypertrophy. Left ventricular systolic function is grossly normal. Ejection Fraction = 50-55%. There is mild aortic sclerosis.; There is no pericardial effusion. MD Perez *Prasad 05/16/2018 10:33 AM
[2018-05-16 11:01] VITALS: PULSE 88; TEMP 98.2
--- NOTE | 2018-05-16 14:32 | DS ---
Physical Examination Vital Signs: Vital Signs Temperature 98.2 F 05/16/18 10:00 Pulse Rate 88 05/16/18 10:00 Respiratory Rate 16 05/16/18 10:00 Blood Pressure 164/93 05/16/18 10:00 O2 Sat by Pulse Oximetry (%) 99 05/16/18 10:00 Findings/Remarks: awake alert family bedside, nad feels better Constitutional: Yes: No Distress Eyes: Yes: WNL HENT: Yes: WNL Neck: Yes: WNL Cardiovascular: Yes: Regular Rate and Rhythm Respiratory: Yes: WNL Gastrointestinal: Yes: WNL Renal/: Yes: WNL Musculoskeletal: Yes: WNL Extremities: Yes: WNL Edema: No Peripheral Pulses WNL: Yes Integumentary: Yes: WNL Wound/Incision: Yes: Clean/Dry Neurological: Yes: WNL ...Motor Strength: WNL Psychiatric: Yes: WNL Labs: CBC, BMP 05/15/18 05:15 05/14/18 10:37 Discharge Summary Reason For Visit: ESSENTIAL HYPERTENSION,ELEVATED TROPONIN LEVEL Current Active Problems Elevated troponin (Acute) Procedures: Principal: echo Hospital Course: admitted for troponin elevation, chest pain and htn emergency. treated with cardiac workup and meds Condition: Stable - Instructions Diet, Activity, Other Instructions: see dr modesto sotomay 27 1pm low salt diet Disposition: HOME - Home Medications Comprehensive Discharge Medication List: Ambulatory Orders Acetaminophen [Tylenol .Regular Strength -] 650 mg PO Q6H PRN #90 tablet Amlodipine Besylate [Norvasc -] 5 mg PO DAILY #30 tablet 05/16/18 Atorvastatin Ca [Lipitor] 20 mg PO HS #30 tablet 05/16/18 Hydrochlorothiazide 12.5 mg PO DAILY #30 tablet MDD 1 tab 05/16/18 Labetalol HCl [Normodyne -] 100 mg PO BID #60 tablet 05/16/18
[2018-05-16 14:57] VITALS: BP 137/80
== END 2018-05-16 15:11 | disposition home or self-care (01) ==
LOC: JER 09:45 → JERBED 14:06 → J2W 05-15 01:54
PROVIDERS: ADMIT Family Medicine; ATTEND Family Medicine
PROC: 3E033GC Introduction of Other Therapeutic Substance into Peripheral Vein, Percutaneous Approach (ICD-10-PCS; principal; 2018-05-14)
DX: R77.8 Other specified abnormalities of plasma proteins (principal); I10 Essential (primary) hypertension; Z91.14 Patient's other noncompliance with medication regimen; Z91.013 Allergy to seafood
CPT/HCPCS: 36415; 70450-TC; 71046-TC-FY; 80053; 80061; 82550; 82553; 83036; 83721; 83735; 83880; 84100; 84484; 85025; 85027; 93005; 93010; 93306-TC; 96374; 96375; 99285-25; G0378; J0131

== ENCOUNTER 2019-03-24 18:21 | Emergency (ER) | payer OTHER ==
[2019-03-24 18:26] VITALS: TEMP 98.1; BMI 39.0
--- NOTE | 2019-03-24 18:26 | PDOC ---
Rapid Medical Evaluation Medical Evaluation: Allergies Allergy/AdvReac Type Severity Reaction Status Date / Time shellfish derived Allergy Severe Swelling Verified 05/14/18 10:00 I have performed a brief in-person evaluation of this patient. The patient presents with a chief complaint of: Feeling lightheaded from yesterday; also with upper abdominal pain and watery diarrhea from yesterday; denies vomiting; hx of HTN and pre-DM Pertinent physical exam findings: In NAD, abdomen soft, nontender I have ordered the following: Labs, EKG The patient will proceed to the ED for further evaluation. 03/24/19 18:23
--- NOTE | 2019-03-24 18:46 | PDOC ---
History of Present Illness - General Chief Complaint: Lightheaded Stated Complaint: DIZZINESS,SOB Time Seen by Provider: 03/24/19 18:23 - History of Present Illness Initial Comments: 03/24/19 18:46 HPI: 39 y/o M with hx of HTN and pre-DM presenting with LH and SOB. He reports feeling LH intermittently while at work yesterday similar to how he felt when his BP was uncontrolled. It occurred while at rest and with exertion without any pattern. He took his BP meds (losartan-hctz 50/12.5) but had no improvement in symptoms. Today he started feeling epigastric abd pain with radiation to LUQ and into his throat with heartburn. When this happened he reproted SOB at rest but was unsure because he said he felt nerves and had to use the bathroom. He denies fever, chills, palpitations, chest pain, dysuria, hematuria. He reports telling his pcp about his dyspepsia like symptoms with abd distension and was told he needed a stool test. PMHx: as noted above ROS: as noted SHx: Denies tobacco use; no alcohol use; no rec drugs Allergies: NKDA ROS: GENERAL/CONSTITUTIONAL: No fever or chills. No weakness. HEAD, EYES, EARS, NOSE AND THROAT: No change in vision. No ear pain or discharge. No sore throat. CARDIOVASCULAR: No chest pain; + shortness of breath RESPIRATORY: No cough, wheezing, or hemoptysis. GASTROINTESTINAL: No nausea, vomiting, diarrhea or constipation. GENITOURINARY: No dysuria, frequency, or change in urination. MUSCULOSKELETAL: No joint or muscle swelling or pain. No neck or back pain. SKIN: No rash NEUROLOGIC: No headache, vertigo, loss of consciousness, or change in strength/ sensation. ENDOCRINE: No increased thirst. No abnormal weight change HEMATOLOGIC/LYMPHATIC: No anemia, easy bleeding, or history of blood clots. ALLERGIC/IMMUNOLOGIC: No hives or skin allergy. PE: GENERAL: Awake, alert, and fully oriented, no acute distress HEAD: No signs of trauma, normocephalic, atraumatic EYES: EOMI, sclera anicteric, conjunctiva clear ENT: Auricles normal inspection, hearing grossly normal, nares patent, oropharynx clear without exudates. Moist mucosa NECK: Normal ROM, no lymphadenopathy LUNGS: No increased work of breathing, symmetrical chest rise, clear to auscultation bilaterally, no wheezes, crackles or rhonchi HEART: Regular rate and rhythm, normal S1 and S2, no murmur, peripheral pulses 2 + and equal bilaterally. ABDOMEN: Soft, nondistended, nontender, normoactive bowel sounds. No guarding, no rebound. No masses. No CVAT MUSCULOSKELETAL: Normal inspection, FROM NEUROLOGICAL: Cranial nerves II through XII grossly intact. Normal speech, normal gait, no focal sensorimotor deficits SKIN: Warm, Dry, normal turgor, no rashes or lesions noted Past History - Past Medical History Allergies/Adverse Reactions: Allergies Allergy/AdvReac Type Severity Reaction Status Date / Time shellfish derived Allergy Severe Swelling Verified 03/24/19 18:26 Home Medications: Ambulatory Orders Acetaminophen [Tylenol .Regular Strength -] 650 mg PO Q6H PRN #90 tablet Amlodipine Besylate [Norvasc -] 5 mg PO DAILY #30 tablet 05/16/18 Atorvastatin Ca [Lipitor] 20 mg PO HS #30 tablet 05/16/18 Hydrochlorothiazide 12.5 mg PO DAILY #30 tablet MDD 1 tab 05/16/18 Labetalol HCl [Normodyne -] 100 mg PO BID #60 tablet 05/16/18 Pantoprazole Sodium [Protonix -] 40 mg PO DAILY #30 tablet.ec 03/24/19 Anemia: No Asthma: No Cancer: No COPD: No Diabetes: Yes HTN: Yes (NOT TREATED) - Surgical History Abdominal Surgery: No Appendectomy: No Cardiac Surgery: No - Psycho Social/Smoking Cessation Hx Smoking Status: No Smoking History: Never smoked Have you smoked in the past 12 months: No Number of Cigarettes Smoked Daily: 0 Hx Alcohol Use: No Drug/Substance Use Hx: No Substance Use Type: None *Physical Exam - Vital Signs Last Vital Signs Temp Pulse Resp BP Pulse Ox 98.1 F 100 H 18 163/105 H 99 03/24/19 18:22 03/24/19 18:22 03/24/19 18:22 03/24/19 18:22 03/24/19 18:22 ED Treatment Course - LABORATORY CBC & Chemistry Diagram: 03/24/19 18:44 03/24/19 18:44 Medical Decision Making - Medical Decision Making 03/24/19 20:05 39 y/o M with hx of HTN and pre-DM presenting with LH and SOB. VSS, AF. PE unremarkable. DDx includes hypertensive urgency, ACS, PE, gastritis, GERD. -cbc, cmp, lipase, trop, ekg, cxr, d dimer -pepcidtatyanaalox 03/24/19 20:48 labs unremarkable; negative trop and d-dimer cxr without any acute pathology ekg nsr with nl intervals and no tammy/d discussed with patient results. symptoms potentially due to dyspepsia and elevated BP; recommending tums and ppi and pcp followup all questions answered at this time Discharge - Discharge Information Problems reviewed: Yes Clinical Impression/Diagnosis: Lightheadedness, Epigastric abdominal pain Condition: Stable Disposition: HOME - Additional Discharge Information Prescriptions: Pantoprazole Sodium [Protonix -] 40 mg PO DAILY #30 tablet.ec - Follow up/Referral Referrals: Laure Nelson, DIE [employer]GER [Primary Care Provider] - - Patient Discharge Instructions Patient Printed Discharge Instructions: DI for Gastritis Additional Instructions: Additional Instructions: Please return to the emergency department with any new or worsening symptoms or concerns including worsening lightheadedness, fainting, severe chest pain, worsening shortness of breath Please follow up with your primary care physician within 72 hours for re- evaluation Please take protonix 40mg daily until you followup with your primary care doctor. Avoid foods that are high in acidity that may exacerbate your symptoms - Post Discharge Activity
[2019-03-24 18:51] LABS: BASO % 0.7 % (0-2.0); EOS % 1.7 % (0-4.5); HEMATOCRIT 39.7 % (35.4-49); HEMOGLOBIN 13.5 GM/dL (11.7-16.9); LYMPH % 24.5 % (8-40); MCH 30.2 pg (25.7-33.7); MCHC 34.1 g/dl (32.0-35.9); MEAN CELL VOLUME 88.7 fl (80-96); MEAN PLT VOLUME 9.2 fl (7.5-11.1); MONO % 8.8 % (3.8-10.2); NEUT % 64.3 % (42.8-82.8); PLATELET COUNT 201 K/MM3 (134-434); RBC 4.48 M/mm3 (4.00-5.60); RDW 14.2 % (11.9-15.9); WHITE BLOOD COUNT 6.7 K/mm3 (4.0-10.0)
--- NOTE | 2019-03-24 19:05 | PDOC ---
Documentation entered by Sara Strauss SCRIBE, acting as scribe for Pita Hinds MD. Pita Hinds MD: This documentation has been prepared by the atilioibe, Sara Strauss SCRIBE, under my direction and personally reviewed by me in its entirety. I confirm that the documentation accurately reflects all work, treatment, procedures, and medical decision making performed by me. Attending Attestation - Resident Resident Name: Armaan Wise - ED Attending Attestation I have performed the following: I have examined & evaluated the patient, The case was reviewed & discussed with the resident, I agree w/resident's findings & plan, Exceptions are as noted - HPI HPI: 03/24/19 19:04 Morbidly obese 39-year-old male presents feeling lightheaded And states that he has had some burning in his epigastric area that goes up to his esophagus Past medical history obesity, Hypertension and has been taking losartan and hydrochlorothiazide and atorvastatin for the past 6 months 03/24/19 19:47 - Physicial Exam PE: 03/24/19 19:48 39-year-old male presents with feeling lightheadedness, some epigastric discomfort for several days Head normocephalic atraumatic Neck no JVDs, no bruits, supple lungs are clear to auscultation bilaterally CVS is regular rate and rhythm S1-S2 Abdomen protuberant but non-tender Skin warm and dry Extremities full range of motion, no deformities Neuro alert and oriented x3 ambulating with ease - Medical Decision Making 03/24/19 19:51 This patient has longstanding history of hypertension and has been taking medications all year for this. EKG is normal sinus rhythm at 89 bpm, QTC is 459 ms, when compared to the EKG done in May 2018 there are no significant changes Patient currently does not have fever chills nausea vomiting or chest pain He describes a burning sensation in his epigastric area that went up to his esophagus Patient is not tachycardic, he is not hypoxic, he is not febrile, CBC is unremarkable Reviewing of his chemistry shows a negative troponin, normal renal function, normal LFTs and unremarkable electrolytes 03/24/19 20: Chemistries were reviewed and his electrolytes, liver function tests, renal function and glucose were unremarkable Troponin was negative Chest x-ray is unchanged from the one done in May 2018 03/24/19 20:55 D-dimer was negative at 282 Impression Essential hypertension, obesity, GERD, epigastric pain Discharged home to follow-up with his primary care provider, continues to take his blood pressure medications
[2019-03-24 19:25] LABS: ALBUMIN 3.9 g/dl (3.4-5.0); BILIRUBIN,TOTAL 0.4 mg/dL (0.2-1); BLOOD UREA NITROGEN 14.9 mg/dL (7-18); CALCIUM 9.1 mg/dL (8.5-10.1); CREATININE 1.2 mg/dL (0.55-1.3); POTASSIUM 3.6 mmol/L (3.5-5.1); TOT PROT 7.8 g/dl (6.4-8.2)
[2019-03-24] MEDS ORDERED: FAMOTIDINE 20 MG/50 ML IVPB 20 MG/50 ML MG IVPB ONE ×2 (19:54→20:18)
[2019-03-24] MEDS ORDERED: MAG HYDROX/AL HYDROX/SIMETH 30 ML UNIT-DOSE CUP PO ONE (19:54)
[2019-03-24] MEDS ORDERED: MAG HYDROX/AL HYDROX/SIMETH 30 ML UNIT-DOSE CUP ONE (20:18)
[2019-03-24 20:53] VITALS: PULSE 84
[2019-03-24 21:39] VITALS: BP 151/92
--- NOTE | 2019-03-26 05:13 | EKG ---
Test Reason : Blood Pressure : / mmHG Vent. Rate : 089 BPM Atrial Rate : 089 BPM P-R Int : 184 ms QRS Dur : 100 ms QT Int : 378 ms P-R-T Axes : 019 -21 020 degrees QTc Int : 459 ms POOR DATA QUALITY, INTERPRETATION MAY BE ADVERSELY AFFECTED NORMAL SINUS RHYTHM NORMAL ECG WHEN COMPARED WITH ECG OF 14-MAY-2018 10:50, NONSPECIFIC T WAVE ABNORMALITY HAS REPLACED INVERTED T WAVES IN LATERAL LEADS Confirmed by DREW AZUL MD ([id number]) on 03/26/2019 5:13:09 AM Referred By: Confirmed By:DREW AZUL MD
== END 2019-03-24 21:30 | disposition home or self-care (01) ==
LOC: JER 18:21
PROC: 3E033GC Introduction of Other Therapeutic Substance into Peripheral Vein, Percutaneous Approach (ICD-10-PCS; principal; 2019-03-24)
DX: K21.9 Gastro-esophageal reflux disease without esophagitis (principal); I10 Essential (primary) hypertension; E66.9 Obesity, unspecified; Z68.39 Body mass index [BMI] 39.0-39.9, adult; Z91.013 Allergy to seafood
CPT/HCPCS: 36415; 71046-TC-FY; 80053; 83690; 84484; 85025; 85379; 93005; 93010; 99282-25

== ENCOUNTER 2019-03-28 23:59 | Emergency (ER) | payer OTHER ==
[2019-03-29] MEDS ORDERED: MECLIZINE HCL 25 MG TABLET (FP) PO ONE (00:49)
[2019-03-29] MEDS ORDERED: PANTOPRAZOLE 40 MG TABLET (FP) PO ONE (00:49)
[2019-03-29] MEDS ORDERED: ONDANSETRON *ODT* 4 MG TABLET SL ONE (00:49)
[2019-03-29] MEDS ORDERED: ONDANSETRON *ODT* 4 MG TABLET ONE (00:59)
[2019-03-29] MEDS ORDERED: PANTOPRAZOLE 40 MG TABLET (FP) ONE (00:59)
[2019-03-29] MEDS ORDERED: MECLIZINE HCL 25 MG TABLET (FP) ONE (00:59)
[2019-03-29 01:03] VITALS: BMI 39.7
--- NOTE | 2019-03-29 01:10 | PDOC ---
History of Present Illness - General Chief Complaint: Chest Pain Stated Complaint: RIGHT EYE PAIN, SICK Time Seen by Provider: 03/29/19 00:38 History Source: Patient Exam Limitations: Clinical Condition - History of Present Illness Initial Comments: 03/29/19 01:05 Patient with past medical history of hypertension, prediabetes and gastritis presented with complaint of burning sensation in the middle of the chest and epigastric region from acid reflux which is worsened when he lays down flat with intermittent shortness of breath when he lays down from acid reflux. Patient was seen 4 days ago for similar symptoms and all work-up including cardiac work-up was negative. 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 Patient reported buying Arias milk of magnesium for symptom but did not take it as he wanted to ask for professional opinion before starting to take medication. Patient also reported pressure behind right eye with fullness in right ear with intermittent spinning sensation which he believes could be from vertigo due to pressure in the air. Denies nausea, vomiting, dizziness now, chest pain, palpitation, sweats, fever or chills. Denies any other symptoms Is this a multiple visit Asthma Patient?: No Timing/Duration: 1 week Past History - Past Medical History Allergies/Adverse Reactions: Allergies Allergy/AdvReac Type Severity Reaction Status Date / Time shellfish derived Allergy Severe Swelling Verified 03/24/19 18:26 Home Medications: Ambulatory Orders Atorvastatin Ca [Lipitor] 20 mg PO HS #30 tablet 05/16/18 Carbamide Peroxide [Debrox] 4 drop AU BID 4 Days #1 bottle 03/29/19 Famotidine [Pepcid -] 40 mg PO DAILY #30 tablet 03/29/19 Losartan 50Mg/Hctz 12.5MG [Hyzaar -] 1 tab PO DAILY 03/29/19 Meclizine HCl 25 mg PO BID PRN 5 Days #20 tablet 03/29/19 Ondansetron [Zofran *Odt*] 4 mg SL Q8H PRN #12 od.tablet 03/29/19 Anemia: No Asthma: No Cancer: No COPD: No Diabetes: Yes HTN: Yes (NOT TREATED) - Surgical History Abdominal Surgery: No Appendectomy: No Cardiac Surgery: No - Psycho Social/Smoking Cessation Hx Smoking Status: No Smoking History: Never smoked Have you smoked in the past 12 months: No Number of Cigarettes Smoked Daily: 0 Hx Alcohol Use: No Drug/Substance Use Hx: No Substance Use Type: None Review of Systems - Review of Systems Able to Perform ROS?: Yes Is the patient limited Bulgarian proficient: No Constitutional: No: Chills, Fever, Malaise HEENTM: Yes: Symptoms Reported, See HPI, Eye Pain (pressure behind right eye). No: Blurred Vision, Tearing, Recent change in vision, Double Vision, Cataracts, Ear Pain, Ocular Prothesis, Ear Discharge, Nose Pain, Nose Congestion, Tinnitus , Nose Bleeding, Hearing Loss, Throat Pain, Throat Swelling, Mouth Pain, Dental Problems, Difficulty Swallowing, Mouth Swelling, Other Respiratory: Yes: Symptoms reported, See HPI, Orthopnea, Other (burning sensation in chest). No: Cough, Shortness of Breath, SOB with Exertion, SOB at Rest, Stridor, Wheezing, Productive cough, Hemoptysis Cardiac (ROS): No: Symptoms Reported, See HPI, Chest Pain, Edema, Irregular Heart Rate, Lightheadedness, Palpitations, Syncope, Chest Tightness, Other ABD/GI: Yes: Symptoms Reported, See HPI, Abdominal cramping (epigastric pain), Other (acid reflux). No: Difficulty Swallowing, Nausea, Rectal Bleeding, Vomiting : No: Symptoms Reported Musculoskeletal: No: Symptoms Reported Integumentary: No: Symptoms Reported, Other Neurological: No: Symptoms reported, See HPI, Headache, Weakness, Ataxia, Dizziness All Other Systems: Reviewed and Negative *Physical Exam - Vital Signs Last Vital Signs Temp Pulse Resp BP Pulse Ox 97.3 F L 62 18 131/84 98 03/29/19 00:10 03/29/19 00:10 03/29/19 00:10 03/29/19 00:10 03/29/19 00:10 - Physical Exam 03/29/19 01:10 GENERAL: Well developed, well nourished. Awake and alert. No acute distress. HEENT: Normocephalic, atraumatic. PERRLA, EOMI. No conjunctival pallor. Sclera are non-icteric. Moist mucous membranes. Oropharynx is clear. NECK: Supple. Full ROM. CARDIOVASCULAR: Regular rate and rhythm. No murmurs, rubs, or gallops. Distal pulses are 2+ and symmetric. PULMONARY: No evidence of respiratory distress. Lungs clear to auscultation bilaterally. No wheezing, rales or rhonchi. ABDOMINAL: Soft. Mild epigastric tenderness. Non-distended. No rebound or guarding. No organomegaly. Normoactive bowel sounds. MUSCULOSKELETAL Normal range of motion at all joints. SKIN: Warm and dry. Normal capillary refill. No rashes. No jaundice. NEUROLOGICAL: Alert, awake, appropriate. Gait is normal without ataxia. PSYCHIATRIC: Cooperative. Good eye contact. Appropriate mood General Appearance: Yes: Nourished, Appropriately Dressed. No: Apparent Distress ED Treatment Course - LABORATORY CBC & Chemistry Diagram: 03/29/19 01:10 03/29/19 01:10 Medical Decision Making - Medical Decision Making 03/29/19 01:08 Patient with past medical history of hypertension, prediabetes and gastritis presented with complaint of burning sensation in the middle of the chest and epigastric region from acid reflux which is worsened when he lays down flat with intermittent shortness of breath when he lays down from acid reflux. Patient was seen 4 days ago for similar symptoms and all work-up including cardiac work-up was negative. 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 Patient reported buying Arias milk of magnesium for symptom but did not take it as he wanted to ask for professional opinion before starting to take medication. Patient also reported pressure behind right eye with fullness in right ear with intermittent spinning sensation which he believes could be from vertigo due to pressure in the air. Denies nausea, vomiting, dizziness now, chest pain, palpitation, sweats, fever or chills. Denies any other symptoms Clinical exam unremarkable except mild epigastric discomfort without guarding or rebound. Patient symptoms likely gastritis from GERD with vertigo. Protonix 40 mg p.o., Zofran 4 mg sublingual ordered for gastritis. Meclizine 25 mg p.o. ordered for vertigo. CBC and cardiac profile lab ordered to rule out acute pathology. EKG shows normal sinus rhythm 03/29/19 02:06 Labs are unremarkable. Patient symptoms likely caused by gastritis. Patient stable for discharge on Pepcid and asked that she be covered by insurance and Zofran with GI follow-up Discharge - Discharge Information Problems reviewed: Yes Clinical Impression/Diagnosis: Epigastric abdominal pain, Lightheadedness GERD (gastroesophageal reflux disease) Qualifiers: Esophagitis presence: without esophagitis Qualified Code(s): K21.9 - Gastro- esophageal reflux disease without esophagitis Cerumen impaction Qualifiers: Laterality: bilateral Qualified Code(s): H61.23 - Impacted cerumen, bilateral Condition: Stable Disposition: HOME - Admission No - Additional Discharge Information Prescriptions: Carbamide Peroxide [Debrox] 4 drop AU BID 4 Days #1 bottle Famotidine [Pepcid -] 40 mg PO DAILY #30 tablet Meclizine HCl 25 mg PO BID PRN 5 Days #20 tablet PRN Reason: vertigo Ondansetron [Zofran *Odt*] 4 mg SL Q8H PRN #12 od.tablet PRN Reason: nausea - Follow up/Referral Referrals: Laure Nelson NP [Primary Care Provider] - Gokul Villalobos MD [Staff Physician] - - Patient Discharge Instructions Patient Printed Discharge Instructions: DI for Gastroesophageal Reflux Disease (GERD), GERD Diet Additional Instructions: Your blood work is normal and your EKG is normal as well. symptoms likely caused by acid reflux. Take prescribed medication as this should be covered by insurance. Use prescribed eardrops to help remove earwax from the ears and tip prescribed meclizine medication as needed for vertigo. Follow-up with your primary care as scheduled. Follow-up referred GI doctor Dr. Villalobos if abdominal pain persists for more than 4 days - Post Discharge Activity
--- NOTE | 2019-03-29 01:32 | PDOC ---
*Physical Exam - Vital Signs Last Vital Signs Temp Pulse Resp BP Pulse Ox 97.3 F L 62 18 131/84 98 03/29/19 00:10 03/29/19 00:10 03/29/19 00:10 03/29/19 00:10 03/29/19 00:10 ED Treatment Course - LABORATORY CBC & Chemistry Diagram: 03/29/19 01:10 03/29/19 01:10 Medical Decision Making - Medical Decision Making 03/29/19 01:22 Mr Piper is a 39 yo M who presents to the ER again for a complaint of epigastric burning pain Patient has a past medical history of HTN, prediabetes and gastritis He presented 4 days ago with a complaint of epigastric burning radiating to the chest Work up was negative Pt was discharged on Protonix but was unable to fill this prescription Pt returns because pain has persisted He did not want to take any medications without clearing it with a doctor Denies nausea, vomiting, dizziness now, chest pain, palpitation, sweats, fever or chills. Pt seen by Midlevel Provider under my direct supervision Pt interviewed and examined Ancillary studies pending I agree with plan as outlined by Midlevel Provider 03/29/19 01:40 EKG SR rate pf 58 bpm, axis nml, intervals nml, no st elevation or epression, t waves upright Discharge - Discharge Information Problems reviewed: Yes Clinical Impression/Diagnosis: Epigastric abdominal pain, Lightheadedness GERD (gastroesophageal reflux disease) Qualifiers: Esophagitis presence: without esophagitis Qualified Code(s): K21.9 - Gastro- esophageal reflux disease without esophagitis Cerumen impaction Qualifiers: Laterality: bilateral Qualified Code(s): H61.23 - Impacted cerumen, bilateral Condition: Stable Disposition: HOME - Additional Discharge Information Prescriptions: Carbamide Peroxide [Debrox] 4 drop AU BID 4 Days #1 bottle Famotidine [Pepcid -] 40 mg PO DAILY #30 tablet Meclizine HCl 25 mg PO BID PRN 5 Days #20 tablet PRN Reason: vertigo Ondansetron [Zofran *Odt*] 4 mg SL Q8H PRN #12 od.tablet PRN Reason: nausea - Follow up/Referral Referrals: Laure Nelson NP [Primary Care Provider] - Gokul Villalobos MD [Staff Physician] - - Patient Discharge Instructions Patient Printed Discharge Instructions: DI for Gastroesophageal Reflux Disease (GERD), GERD Diet Additional Instructions: Your blood work is normal and your EKG is normal as well. symptoms likely caused by acid reflux. Take prescribed medication as this should be covered by insurance. Use prescribed eardrops to help remove earwax from the ears and tip prescribed meclizine medication as needed for vertigo. Follow-up with your primary care as scheduled. Follow-up referred GI doctor Dr. Villalobos if abdominal pain persists for more than 4 days - Post Discharge Activity
[2019-03-29 01:34] LABS: BASO % 0.7 % (0-2.0); EOS % 2.1 % (0-4.5); HEMATOCRIT 39.5 % (35.4-49); HEMOGLOBIN 13.3 GM/dL (11.7-16.9); LYMPH % 31.5 % (8-40); MCHC 33.7 g/dl (32.0-35.9); MEAN PLT VOLUME 8.8 fl (7.5-11.1); MONO % 10.3 % (3.8-10.2); NEUT % 55.4 % (42.8-82.8); PLATELET COUNT 214 K/MM3 (134-434); RBC 4.44 M/mm3 (4.00-5.60); RDW 13.7 % (11.9-15.9); WHITE BLOOD COUNT 5.4 K/mm3 (4.0-10.0)
[2019-03-29] MEDS ORDERED: MAG HYDROX/AL HYDROX/SIMETH 30 ML UNIT-DOSE CUP PO ONE (01:58)
[2019-03-29 02:03] LABS: ALBUMIN 4.1 g/dl (3.4-5.0); BILIRUBIN,TOTAL 0.5 mg/dL (0.2-1); BLOOD UREA NITROGEN 15.4 mg/dL (7-18); CALCIUM 8.9 mg/dL (8.5-10.1); POTASSIUM 3.8 mmol/L (3.5-5.1); TOT PROT 7.9 g/dl (6.4-8.2)
[2019-03-29] MEDS ORDERED: MAG HYDROX/AL HYDROX/SIMETH 30 ML UNIT-DOSE CUP ONE (02:34)
[2019-03-29 02:42] VITALS: BP 125/77; PULSE 68; TEMP 98
--- NOTE | 2019-03-29 15:27 | EKG ---
Test Reason : Blood Pressure : / mmHG Vent. Rate : 058 BPM Atrial Rate : 058 BPM P-R Int : 172 ms QRS Dur : 102 ms QT Int : 450 ms P-R-T Axes : 025 018 034 degrees QTc Int : 441 ms SINUS BRADYCARDIA OTHERWISE NORMAL ECG WHEN COMPARED WITH ECG OF 24-MAR-2019 18:30, VENT. RATE HAS DECREASED BY 31 BPM Confirmed by MD JARED, KATHRYN ([id number]) on 03/29/2019 3:26:48 PM Referred By: Confirmed By:KATHRYN COLEMAN MD
== END 2019-03-29 02:42 | disposition home or self-care (01) ==
LOC: JER 23:59
DX: K21.9 Gastro-esophageal reflux disease without esophagitis (principal); H61.23 Impacted cerumen, bilateral; I10 Essential (primary) hypertension; E11.9 Type 2 diabetes mellitus without complications; Z91.013 Allergy to seafood
CPT/HCPCS: 36415; 80053; 82550; 82553; 84484; 85025; 93005; 93010; 99284-25; Q0162

== ENCOUNTER 2019-11-07 19:09 | Emergency (ER) | payer OTHER ==
[2019-11-07 19:31] VITALS: BP 156/101; TEMP 98.3; BMI 38.6
--- NOTE | 2019-11-07 21:46 | PDOC ---
History of Present Illness - General Chief Complaint: Pain Stated Complaint: NECK PAIN/ HBP Time Seen by Provider: 11/07/19 20:19 - History of Present Illness Initial Comments: 39 yo male with no significant PMH presents with 2 day hx of neck pain. Pt says he slept on it wrong and woke up with neck pain. Pain is sharp, 7/10, radiates up to the occipital, worse with movement, better with rest and alleve. He denies fevers, chills, numbness, tingling in arms, blurry vision, headaches, spasms. Past History - Medical History Allergies/Adverse Reactions: Allergies Allergy/AdvReac Type Severity Reaction Status Date / Time shellfish derived Allergy Severe Swelling Verified 03/24/19 18:26 Home Medications: Ambulatory Orders Atorvastatin Ca [Lipitor] 20 mg PO HS #30 tablet 05/16/18 Carbamide Peroxide [Debrox] 4 drop AU BID 4 Days #1 bottle 03/29/19 Famotidine [Pepcid -] 40 mg PO DAILY #30 tablet 03/29/19 Losartan 50Mg/Hctz 12.5MG [Hyzaar -] 1 tab PO DAILY 03/29/19 Meclizine HCl 25 mg PO BID PRN 5 Days #20 tablet 03/29/19 Ondansetron [Zofran *Odt*] 4 mg SL Q8H PRN #12 od.tablet 03/29/19 Acetaminophen [Tylenol] 325 mg PO BID 10 Days #20 capsule 11/07/19 Cyclobenzaprine HCl [Flexeril -] 10 mg PO HS #7 tablet 11/07/19 Anemia: No Asthma: No Cancer: No COPD: No Diabetes: No HTN: Yes (NOT TREATED) - Surgical History Abdominal Surgery: No Appendectomy: No Cardiac Surgery: No - Psycho-Social/Smoking History Smoking Status: No Smoking History: Never smoked Have you smoked in the past 12 months: No Number of Cigarettes Smoked Daily: 0 - Substance Abuse Hx (Audit-C & DAST Scrn) How often the patient has a drink containing alcohol: Never Score: In Men: 4 or > Positive; In Women: 3 or > Positive: 0 Screen Result (Pos requires Nsg. Audit-10AR): Negative Review of Systems - Review of Systems Constitutional: No: Chills, Fever, Malaise HEENTM: No: Recent change in vision, Double Vision Respiratory: No: Cough, Shortness of Breath Cardiac (ROS): No: Chest Pain, Palpitations ABD/GI: No: Diarrhea, Nausea, Vomiting : No: Burning, Dysuria Musculoskeletal: Yes: Other (neck pain) Integumentary: No: Erythema, Lesions Neurological: No: Headache, Tingling, Tremors, Dizziness Psychiatric: No: Anxiety, Depression, Mood Swings Endocrine: No: Intolerance to Cold, Intolerance to Heat *Physical Exam - Vital Signs Last Vital Signs Temp Pulse Resp BP Pulse Ox 98.3 F 90 20 156/101 H 99 11/07/19 19:28 11/07/19 19:28 11/07/19 19:28 11/07/19 19:28 11/07/19 19:28 - Physical Exam General Appearance: Yes: Appropriately Dressed. No: Apparent Distress HEENT: positive: EOMI, Normal Voice Neck: negative: Tender, Rigid Respiratory/Chest: positive: Lungs Clear, Normal Breath Sounds. negative: Respiratory Distress Cardiovascular: positive: Regular Rhythm, Regular Rate, S1, S2. negative: Edema Gastrointestinal/Abdominal: positive: Flat, Soft. negative: Tender Musculoskeletal: positive: Normal Inspection, Other (pain in neck/trapezius when moving the neck, mostly on the left side. No pain with paplation. NM in tact). negative: CVA Tenderness Extremity: positive: Normal Inspection. negative: Normal Range of Motion Integumentary: positive: Normal Color, Dry, Warm Neurologic: positive: Fully Oriented, Alert, Normal Mood/Affect Medical Decision Making - Medical Decision Making 39 yo with PMH of gastritis presents with neck pain most likely an MSK strain. Exam suggests MSK strain No acute trauma Pt given tylenol and flexeril for home management Discharge - Discharge Information Problems reviewed: Yes Clinical Impression/Diagnosis: Neck strain Condition: Stable Disposition: HOME - Admission No - Additional Discharge Information Prescriptions: Cyclobenzaprine HCl [Flexeril -] 10 mg PO HS #7 tablet Acetaminophen [Tylenol] 325 mg PO BID 10 Days #20 capsule - Follow up/Referral - Patient Discharge Instructions Patient Printed Discharge Instructions: DI for Neck Pain Additional Instructions: Take the tylenol and flexeril as prescribed at home. Do not drive or operate heavy machinery while using flexeril. Follow up with your primary care within 5 days to evaluate your condition. Return to the ED if your symptoms worsens and/or you experience numbness, tingling, spasms, leg weakness, inability to urinate/defecate, worsening headaches. - Post Discharge Activity
--- NOTE | 2019-11-07 21:49 | PDOC ---
Documentation entered by Alise Verdugo SCRIBE, acting as scribe for Yahir Moralez MD. Yahir Moralez MD: This documentation has been prepared by the atilioibeLucina Sydney, SCRIBE, under my direction and personally reviewed by me in its entirety. I confirm that the documentation accurately reflects all work, treatment, procedures, and medical decision making performed by me. Attending Attestation - Resident Resident Name: Flor Hong - ED Attending Attestation I have performed the following: I have examined & evaluated the patient, The case was reviewed & discussed with the resident, I agree w/resident's findings & plan, Exceptions are as noted - HPI HPI: 11/07/19 21:34 39y M hx of htn presents with 2 days of L neck pain, started after he woke up in the morning yesterday with mild L sided neck pain, that gradually worsening yestrday and was more severe last night. He took alleve htis morning with impromevement but pain then recurred. The patient denies any associated numbness, tingling, recent traumas or falls, headache, dizziness, vision changes. Patient also had a complaint of high blood pressure states he was late in taking his blood pressure medicines he took his blood pressure prior to coming to the ER and is very very elevated so he wanted to have it checked here. 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 Patient notes that the pain is worse when he took looks over to the left. - Physicial Exam PE: 11/07/19 21:48 GENERAL: The patient is awake, alert, and fully oriented, Nontoxic - in no acute distress. HEAD: Normocephalic, atraumatic. EYES: extraocular movements intact, sclera anicteric, conjunctiva clear. ENT: Normal voice, Moist mucous membranes. NECK: Normal range of motion, supple, mild tenderness to the left trapezius. No midline tenderness in the cervical thoracic or lumbar spine. No erythema, induration, fluctuance noted - Medical Decision Making 11/07/19 21:48 Suspect muscle strain no neuro complaints or redflags no signs of bony injury or clnical hx of ivdu We will give the patient Tylenol and Flexeril supportive care at home Discharge - Discharge Information Problems reviewed: Yes Clinical Impression/Diagnosis: Neck strain Qualifiers: Encounter type: initial encounter Qualified Code(s): S16.1XXA - Strain of muscle, fascia and tendon at neck level, initial encounter Condition: Stable Disposition: HOME - Additional Discharge Information Prescriptions: Cyclobenzaprine HCl [Flexeril -] 10 mg PO HS #7 tablet Acetaminophen [Tylenol] 325 mg PO BID 10 Days #20 capsule - Follow up/Referral - Patient Discharge Instructions Patient Printed Discharge Instructions: DI for Neck Pain Additional Instructions: Take the tylenol and flexeril as prescribed at home. Do not drive or operate heavy machinery while using flexeril. Follow up with your primary care within 5 days to evaluate your condition. Return to the ED if your symptoms worsens and/or you experience numbness, tingling, spasms, leg weakness, inability to urinate/defecate, worsening headaches. - Post Discharge Activity
[2019-11-07] MEDS ORDERED: ACETAMINOPHEN 325 MG TABLET (FP) ONE (22:03)
[2019-11-07 22:08] VITALS: PULSE 76
== END 2019-11-07 22:08 | disposition home or self-care (01) ==
LOC: JER 19:09
DX: S16.1XXA Strain of muscle, fascia and tendon at neck level, initial encounter (principal)
CPT/HCPCS: 99283-25